=== PATIENT | male | born 1970 | race Caucasian/White ===

== ENCOUNTER 2017-04-11 01:00 | Inpatient (IN) | payer MEDICARE, OTHER ==
[~2017-04-11] VITALS: Ht 182.9 cm; Wt 90.7 kg
--- NOTE | ~2017-04-11 | HP ---
Unit #: [id number] #: [id number] Patient: ESHA BOWEN [id number] [place] [address] [id number] I MR#: [id number] NAME: ESHA BOWEN ROOM: P254 Age: 47 Sex: M Admission Date: 04/12/2017 : 1970 Attending Physician: Trevon Carmona M.D. Admitting Physician: Trevon Carmona M.D. Primary Care Physician: Primary Care Physician No HISTORY AND PHYSICAL HISTORY OF PRESENT ILLNESS The patient is a 47-year-old male who states he is admitted due to suicidal ideation and severe depression. PAST MEDICAL HISTORY None. PAST SURGICAL HISTORY 1. Significant for surgery on his right hip that resulted in compartment syndrome and patient need for use of wheelchair. 2. Significant for leg surgery. ALLERGIES None. SOCIAL HISTORY Positive for smoking. FAMILY HISTORY Noncontributory. REVIEW OF SYSTEMS CONSTITUTIONAL: No fever or chills. HEENT: Denies any sore throat, ear pain or runny nose. CARDIOVASCULAR: Denies chest pain, irregular heart rhythm or palpitations. CHEST: Denies shortness of breath or cough. No hemoptysis. GASTROINTESTINAL: Denies nausea, vomiting, diarrhea or chronic constipation. ENDOCRINE: Denies history of increased thirst or urination. No recent significant weight loss or gain. GENITOURINARY: Denies dysuria, frequency, or hematuria. SKIN: Denies any rashes. HEMATOLOGIC: Denies history of increased bleeding or bruising. MUSCULOSKELETAL: Denies any hot, swollen joints. No generalized muscle pain. NEUROLOGIC: Denies problems with vision or speech. No frequent, severe headaches. No numbness, tingling or weakness in any extremities. Denies loss of bladder or bowel control. CURRENT MEDICATIONS 1. Neurontin 800 mg p.o. 4 times daily. 2. Xanax 2 mg p.o. t.i.d. 3. Suboxone 8/2 three films daily. Unit #: [id number] #: [id number] Patient: ESHA BOWEN 4. Adderall 20 mg p.o. t.i.d. PHYSICAL EXAMINATION GENERAL: Alert, oriented, in no acute distress. Patient lying in bed comfortably. VITAL SIGNS: Temperature 97.8, blood pressure 103/70, heart rate 84, respirations 16. HEIGHT: 6 feet. WEIGHT: 200 pounds. SKIN: Warm and dry without rash or lesion. Tattoos, left shoulder, right forearm. Scar to the right knee. Bilateral pedal edema. Abrasion to both feet. Abrasion to posterior left leg. Areas are not open or draining. They are scabbed. Patient states that he does recall scraping them but does not know on what. HEENT: Normocephalic. TMs not viewed. Oral and nasal passages clear. Conjunctivae clear. PERRLA. EOMs intact. NECK: Supple without lymphadenopathy or thyromegaly. HEART: Regular rate and rhythm without murmur. LUNGS: Clear. ABDOMEN: Soft, nontender, without masses or hepatosplenomegaly. : Not done. EXTREMITIES: No evidence of cyanosis, clubbing or edema. Moves all without focal deficit. NEUROLOGICAL: Grossly within normal limits. Cranial Nerves: II: Visual kaye are intact. III, IV AND : Extraocular movements are intact. Pupils are equal, round and reactive to light. V: Facial sensation is grossly normal. VII: Facial movements and expression are normal. VIII: Auditory acuity grossly intact. IX, X: Uvula is midline. Phonation is normal. XI: Patient shrugs shoulders and turns head normally. XII: Tongue protrudes in the midline. Sensory and Motor Function: Sensory and motor sensation is grossly normal. Motor: moves all extremities well. Coordination: Gait is normal. Deep Tendon Reflexes: Intact. IMPRESSION Psychiatric admission. RECOMMENDATIONS PSYCHIATRIC: Per psychiatrist. MEDICAL: No contraindication to participate in facility's activities. MEDICAL PROGNOSIS Good. Dictated by... Jessica Love/autumn TD: 04/12/2017 16:53 JOB #: [id number] Unit #: [id number] #: [id number] Patient: ESHA BOWEN HISTORY AND PHYSICAL Page 1 of 1 X Mercedez Bundy APR X HISTORY AND PHYSICAL
--- NOTE | ~2017-04-11 | PN ---
Unit #: [id number] #: [id number] Patient: ESHA BOWEN [id number] [facility] [address] [place] [address] [id number] I MR#: [id number] NAME: ESHA BOWEN ROOM: P254 Age: 47 Sex: M Admission Date: 04/12/2017 : 1970 Attending Physician: Trevon Carmona M.D. Admitting Physician: Trevon Carmona M.D. Primary Care Physician: Primary Care Physician No [facility] PROGRESS NOTES DATE 04/21/2017 DISCUSSION Esha continues to be dysphoric and irritable in the unit, although he has a brighter and appropriate and a congruent affect. He is alert and fully oriented today. His memory and concentration are fair. His thought processes are logical with no active psychosis. He does continue to pursue suicidal ideation. ASSESSMENT Bipolar depressed. PLAN Continue with the current treatment plan and monitor for response. Dictated by... Venus Mccann/carla TD: 04/22/2017 10:44 JOB #: [id number] [facility] PROGRESS NOTES Page 1 of 1 X Trevon Carmona MD X PROGRESS NOTE
--- NOTE | ~2017-04-11 | PN ---
Unit #: [id number] #: [id number] Patient: ESHA BOWEN [id number] [facility] [address] [place] [address] [id number] I MR#: [id number] NAME: ESHA BOWEN ROOM: P254 Age: 47 Sex: M Admission Date: 04/12/2017 : 1970 Attending Physician: Trevon Carmona M.D. Admitting Physician: Trevon Carmona M.D. Primary Care Physician: Primary Care Physician No HERMES PROGRESS NOTES DATE OF SERVICE 04/20/2017 DISCUSSION Esha is visible on the unit attending groups and activities. He is compliant with medication with no adverse side effects. He is alert and fully oriented and has no psychosis. He continues to be unable to contract for safety. ASSESSMENT Bipolar depressed. PLAN Continue current treatment plan. Dictated by... Trevon Carmona M.D. ALO/kalpesh TD: 04/21/2017 23:33 JOB #: [id number] [facility] PROGRESS NOTES Page 1 of 1 X Trevon Carmona MD PROGRESS NOTE
--- NOTE | ~2017-04-11 | PN ---
Unit #: [id number] #: [id number] Patient: ESHA BOWEN [id number] [facility] [address] [place] [address] [id number] I MR#: [id number] NAME: ESHA BOWEN ROOM: P254 Age: 47 Sex: M Admission Date: 04/12/2017 : 1970 Attending Physician: Trevon Carmona M.D. Admitting Physician: Trevon Carmona M.D. Primary Care Physician: Primary Care Physician Lauren MIRZA PROGRESS NOTES DATE OF SERVICE 04/23/2017 DISCUSSION Esha shows ongoing improvement today. Mood is better and more stable with a brighter affect. He is alert and fully oriented with no active psychosis. He denies suicidal ideation, intent or plan. ASSESSMENT Bipolar, depressed. PLAN Anticipate discharge tomorrow with followup through Dr. Blair. Dictated by... Venus Mccann/kobih TD: 04/24/2017 19:55 JOB #: [id number] [facility] PROGRESS NOTES Page 1 of 1 X Trevon Carmona MD X PROGRESS NOTE
--- NOTE | ~2017-04-11 | CO ---
Unit #: [id number] #: [id number] Patient: ESHA BOWEN [id number] [facility] [address] [place] [address] [id number] Alexy MR#: [id number] NAME: ESHA BOWEN ROOM: P254 Age: 47 Sex: M Admission Date: 04/12/2017 : 1970 Attending Physician: Trevon Carmona M.D. Primary Care Physician: Primary Care Physician No CONSULTATION REPORT REASON FOR CONSULT Abrasions to bilateral lower extremities. SUBJECTIVE "I had surgery several years ago and my legs don't work right. I remember scraping my legs and my feet on something but I don't remember what." OBJECTIVE Vital signs within normal limits. Noted multiple abrasions to bilateral feet, posterior left calf, slight redness. No drainage. Bilateral pedal edema noted as well. ASSESSMENT Abrasion, bilateral feet and posterior left leg. PLAN Apply compression stockings while out of bed. Patient to have triple antibiotic ointment to all wounds twice daily. Dictated by... Jessica Love/autumn TD: 04/12/2017 16:59 JOB #: [id number] CONSULTATION REPORT Page 1 of 1 X Mercedez Bundy APR X CONSULTATION REPORT
--- NOTE | ~2017-04-11 | PN ---
Unit #: [id number] #: [id number] Patient: ESHA BOWEN [id number] [facility] [address] [place] [address] [id number] I MR#: [id number] NAME: ESHA BOWEN ROOM: P254 Age: 47 Sex: M Admission Date: 04/12/2017 : 1970 Attending Physician: Trevon Carmona M.D. Admitting Physician: Trevon Carmona M.D. Primary Care Physician: Primary Care Physician Lauren MIRZA PROGRESS NOTES DATE 04/16/2017 DISCUSSION Esha is now back on all of his medications from his outpatient doctor and has started on Cymbalta with no adverse side effects. His mood is somewhat depressed with a congruent affect. His speech is over-inclusive but easily understood. Musculoskeletal examination is calm, although the patient rides chronically in a wheelchair. He is alert and fully oriented with no evidence of psychosis. He continues to report suicidal ideation. He is requesting placement in a "personal chcf" after discharge. ASSESSMENT Bipolar depressed. PLAN Continue current medications and refer to social studies department chair for discharge planning. Dictated by... Trevon Carmona M.D. ALO/carla TD: 04/17/2017 11:04 JOB #: [id number] [facility] PROGRESS NOTES Page 1 of 1 X Trevon Carmona MD PROGRESS NOTE
--- NOTE | ~2017-04-11 | PN ---
Unit #: [id number] #: [id number] Patient: ESHA BOWEN [id number] [facility] [address] [place] [address] [id number] I MR#: [id number] NAME: ESHA BOWEN ROOM: P254 Age: 47 Sex: M Admission Date: 04/12/2017 : 1970 Attending Physician: Trevon Carmona M.D. Admitting Physician: Trevon Carmona M.D. Primary Care Physician: Primary Care Physician Lauren MIRZA PROGRESS NOTES DATE 04/17/2017 DISCUSSION Esha continues to have an irritable and depressed mood, but a congruent affect. He is alert and fully oriented He has no evidence of psychosis. He does continue to report suicidal ideation. He is fairly cooperative with unit groups and activities and compliant with medications. ASSESSMENT Bipolar depressed. PLAN Continue current treatment plan. Dictated by... Venus Mccann/carla TD: 04/22/2017 09:27 JOB #: [id number] [facility] PROGRESS NOTES Page 1 of 1 X Trevon Carmona MD PROGRESS NOTE
--- NOTE | ~2017-04-11 | PN ---
Unit #: [id number] #: [id number] Patient: ESHA BOWEN [id number] [facility] [address] [place] [address] [id number] I MR#: [id number] NAME: ESHA BOWEN ROOM: P254 Age: 47 Sex: M Admission Date: 04/12/2017 : 1970 Attending Physician: Trevon Carmona M.D. Admitting Physician: Trevon Carmona M.D. Primary Care Physician: Primary Care Physician Lauren VEGA NOTES DATE OF SERVICE: 04/14/2017 DISCUSSION Esha complains that he is not on his Neurontin which has not yet been confirmed by his pharmacy. He says that it needed for the pain in his legs. He also requests to be started on something for depression, and after discussion of risks and benefits, we decided on a trial of Cymbalta. He is somewhat depressed in his mood with a congruent affect. He is alert and fully oriented with no evidence of psychosis. He does report ongoing SI. ASSESSMENT Bipolar depressed. PLAN We will restart Neurontin 800 mg q.i.d. as prescribed by his outpatient physician, and add Cymbalta 60 mg daily. Dictated by... Venus Mccann/zachary TD: 04/14/2017 14:24 JOB #: [id number] [facility] VEGA NOTES Page 1 of 1 X Trevon Carmona MD X PROGRESS NOTE
--- NOTE | ~2017-04-11 | PN ---
Unit #: [id number] #: [id number] Patient: ESHA BOWEN [id number] [facility] [address] [place] [address] [id number] I MR#: [id number] NAME: ESHA BOWEN ROOM: P254 Age: 47 Sex: M Admission Date: 04/12/2017 : 1970 Attending Physician: Trevon Carmona M.D. Admitting Physician: Trevon Carmona M.D. Primary Care Physician: Primary Care Physician No [facility] PROGRESS NOTES DATE OF SERVICE 04/15/2017 DISCUSSION Esha started back on his Neurontin yesterday and has started Cymbalta this morning. His mood remains depressed with a decreased affect. He is alert and fully oriented. His memory and concentration are fair to good. Thought processes are mildly circumstantial but otherwise nonpsychotic and he continues to report some suicidal thinking. ASSESSMENT Bipolar depressed. PLAN Continue current treatment plan and precautions. Dictated by... Venus Mccann/kalpesh TD: 04/16/2017 00:57 JOB #: [id number] [facility] PROGRESS NOTES Page 1 of 1 X Trevon Carmona MD PROGRESS NOTE
--- NOTE | ~2017-04-11 | PN ---
Unit #: [id number] #: [id number] Patient: ESHA BOWEN [id number] [facility] [address] [place] [address] [id number] I MR#: [id number] NAME: ESHA BOWEN ROOM: P254 Age: 47 Sex: M Admission Date: 04/12/2017 : 1970 Attending Physician: Trevon Carmona M.D. Admitting Physician: Trevon Carmona M.D. Primary Care Physician: Primary Care Physician Lauren VEGA NOTES DATE OF SERVICE 04/22/2017 DISCUSSION Esha continues to complain of neck pain from a "suicide attempt" he claims he did by falling head first off a table a few months ago. He reports that his family will be back in town soon and is expecting to pick him up at the hospital in the near future. He is alert and fully oriented with no psychosis. He continues to be unable to contract for safety. ASSESSMENT Bipolar depressed. PLAN Continue current medications and precautions. Ibuprofen will be provided for any anti-inflammatory effect. Dictated by... Venus Mccann/kalpesh TD: 04/23/2017 01:15 JOB #: [id number] [facility] PROGRESS NOTES Page 1 of 1 X Trevon Carmona MD PROGRESS NOTE
--- NOTE | ~2017-04-11 | PN ---
Unit #: [id number] #: [id number] Patient: ESHA BOWEN [id number] [facility] [address] [place] [address] [id number] I MR#: [id number] NAME: ESHA BOWEN ROOM: P254 Age: 47 Sex: M Admission Date: 04/12/2017 : 1970 Attending Physician: Trevon Carmona M.D. Admitting Physician: Trevon Carmona M.D. Primary Care Physician: Primary Care Physician Lauren MIRZA PROGRESS NOTES DATE OF SERVICE 04/18/2017 DISCUSSION Esha continues to be anxious and depressed although his affect is incongruent with his mood. He is somewhat demanding of staff attention and does not do any overt med-seeking on the unit. He is alert and fully oriented with irritable and psychotic mood. He continues to express suicidal ideation. ASSESSMENT Bipolar depressed. PLAN We will continue current medications and precautions. Dictated by... Venus MccannH/bzg TD: 04/22/2017 09:46 JOB #: [id number] [facility] PROGRESS NOTES Page 1 of 1 X Trevon Carmona MD X PROGRESS NOTE
--- NOTE | ~2017-04-11 | DS ---
Unit #: [id number] #: [id number] Patient: PA BOWEN [id number] [facility] [address] [place] [address] [id number] I MR#: [id number] NAME: PA BOWEN ROOM: P254 Age: 47 Sex: M Admission Date: 04/12/2017 : 1970 Discharge Date: 04/24/2017 Attending Physician: Trevon Carmona M.D. Primary Care Physician: Primary Care Physician No DISCHARGE SUMMARY REASON FOR ADMISSION Pa is a 47-year male with multiple admission to this facility for bipolar disorder, chronic pain, substance abuse and antisocial personality. He reported recently seeing his doctor but did not mention suicidal ideation at that time. He now has a plan to "go out and find a gun off the street to shoot myself with, or by an overdose" and was admitted for stabilization. LABORATORY DATA Please see hospital chart. HOSPITAL COURSE Pa was admitted and placed on suicide precautions. His home medications were restarted with reluctance, given the large number of controlled substances that he takes in combination and his history of heroin abuse and dependence. Cymbalta 60 mg daily was added for depression. He enrolled in psychotherapy groups and activities and was generally a cooperative participant. His mood gradually improved and on the day of discharge he once again contracted for safety in the outpatient setting. DISCHARGE DIAGNOSIS AXIS I: Bipolar depressed opiate dependence. AXIS II: Antisocial personality disorder. AXIS III Hepatitis C, bilateral compartment syndrome. INSTRUCTION TO PATIENT Follow up with Dr. Blair and primary care physician. DISCHARGE MEDICATIONS Cymbalta 60 mg daily for depression. Medications to be provided by his outpatient doctor were Xanax 2 mg three times a day for anxiety, Adderall 20 mg three times a day for attention deficit disorder, Suboxone 1 tablet three times a day for opiate addiction Neurontin 18 mg four times a day for neuropathy. Motrin 600 mg every six hours as needed for pain and Neosporin topically to his compartment syndrome wounds as needed to prevent infection. CONDITION ON DISCHARGE Fair. PROGNOSIS Fair. Unit #: [id number] #: [id number] Patient: PA BOWEN DIET AND ACTIVITY Per primary care doctor. Dictated by... Trevon Carmona M.D. [facility]/kalpesh TD: 04/25/2017 02:39 JOB #: [id number] DISCHARGE SUMMARY Page 1 of 1 X Trevon Carmona MD DISCHARGE SUMMARY
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
[~2017-04-11 01:00] MED LIST: ADDERALL PO; AMBIEN10 MG PO; ATIVAN PO; CELEXA PO; CELEXA20 MG PO; CIPRO PO; FLEXERIL PO; KLONOPIN PO; LOPRESSOR PO; NEURONTIN PO; NEURONTIN300 MG PO; NEURONTIN600 MG PO; PRILOSEC PO; RYTHMOL PO; SEROQUEL PO; SEROQUEL300 MG PO; SEROQUEL50 MG PO; SUBOXONE 8 MG-1 EAC1 SL; VICODIN PO; XANAX2 MG PO
[2017-04-12 15:15] LABS: AMPHETAMINE POS (NEG); BARBITURATES NEG (NEG); BENZODIAZEPINES POS (NEG); COCAINE NEG (NEG); MARIJUANA NEG (NEG); OPIATES NEG (NEG); TRICYCLIC ANTIDEPRESSANTS NEG (NEG); U METHADONE NEG (NEG)
== END 2017-04-24 10:45 | disposition home or self-care (01) | DRG 885 ==
LOC: P2L 04-12 04:00 → P1S 04-12 04:00 → POF 04-12 10:27 → P2L 04-12 12:11
PROVIDERS: Psychiatry & Neurology Psychiatry
DX: F31.9 Bipolar disorder, unspecified (principal); B19.20 Unspecified viral hepatitis C without hepatic coma; F17.200 Nicotine dependence, unspecified, uncomplicated; T79.A0XD Compartment syndrome, unspecified, subsequent encounter; F60.2 Antisocial personality disorder
CPT/HCPCS: 36415; 73590; 80048; 80307; 82553; 83880; 84484; 85025; 85610; 85730; 93005; 93971; 96360; 99285